=== PATIENT | female | born 1945 | race Caucasian/White ===

== ENCOUNTER 2017-01-05 09:01 | Day surgery (SDC) | payer MEDICARE, OTHER ==
--- NOTE | ~2017-01-05 | EGD ---
EGD REPORT [facility] [address] [place] [id number] NAME: KARY HAYS : [birth year] STATUS : REG [facility]#: [id number] AGE: 71 ADM/REG DATE : 01/05/17 MR#: [id number] REPORT SERV DATE: 01/05/17 DICTATED BY: ARSENIO VIRGEN DATE: 01/05/17 REPORT STATUS : Draft TRANSCRIBED BY: [employer] DATE: 01/05/17 [facility] Center Patient Name: Kary Hays Date of : 1945 Attending MD: ARSENIO VIRGEN MD Procedure Date No Time: 01/05/2017 Procedure: Colonoscopy Indications: High risk colon cancer surveillance: Personal history of colonic polyps, FH of Colon Cancer - 1st degree relative Referring MD: EDWIN WALLACE Medicines: as per anesthesia Complications: No immediate complications. Procedure: Pre-Anesthesia Assessment: - ASA Grade Assessment: III - A patient with severe systemic disease. After I obtained informed consent, the scope was passed under direct vision. Throughout the procedure, the patient's blood pressure, pulse, and oxygen saturations were monitored continuously. The PCF [id number] was introduced through the anus and advanced to the cecum, identified by appendiceal orifice and ileocecal valve. The colonoscopy was performed without difficulty. The patient tolerated the procedure. The quality of the bowel preparation was adequate to identify polyps. Findings: The perianal and digital rectal examinations were normal. A sessile polyp was found in the transverse colon. The polyp was 4 mm in size. The polyp was removed with a jumbo cold forceps. Resection and retrieval were complete. A sessile polyp was found in the sigmoid colon. The polyp was 4 mm in size. The polyp was removed with a jumbo cold forceps. Resection and retrieval were complete. A sessile polyp was found in the rectum. The polyp was 3 mm in size. The polyp was removed with a jumbo cold forceps. Resection and retrieval were complete. Impression: - One 4 mm polyp in the transverse colon. Resected and retrieved. - One 4 mm polyp in the sigmoid colon. Resected and retrieved. - One 3 mm polyp in the rectum. Resected and retrieved. Recommendation: - Await pathology results. - Repeat colonoscopy for surveillance based on pathology EGD REPORT [address] [id number] NAME: KARY HAYS : [birth year] STATUS : REG [facility]#: [id number] AGE: 71 ADM/REG DATE : 01/05/17 MR#: [id number] REPORT SERV DATE: 01/05/17 DICTATED BY: ARSENIO VIRGEN DATE: 01/05/17 REPORT STATUS : Draft TRANSCRIBED BY: [employer] DATE: 01/05/17 results. Procedure Code(s): --- Professional --- 82667, Colonoscopy, flexible, proximal to splenic flexure; with biopsy, single or multiple Diagnosis Code(s): --- Professional --- K62.1, Rectal polyp D12.5, Benign neoplasm of sigmoid colon D12.3, Benign neoplasm of transverse colon Z86.010, Personal history of colonic polyps Z80.0, Family history of malignant neoplasm of digestive organs CPT copyright 2013 [employer]. All rights reserved. The codes documented in this report are preliminary and upon patient service associate review may be revised to meet current compliance requirements. ARSENIO VIRGEN MD 01/05/2017 12:12 PM This report has been signed electronically. Number of Addenda: 0 Note Initiated On: 01/05/2017 11:28 AM Scope Withdrawal Time 0 hours 10 minutes 54 seconds [address] [id number]
[~2017-01-05 09:01] MED LIST: COQ10100 MG OR; CYANO1000T PO; GARLIQUE PO; GLUCOPHAGE1000 MG PO; GLUCPH PO; LEVOTHROID25 MCG PO; LEVOTHYROXIN125 MCG PO; LEVOTHYROXIN25 MCG PO; LIPOFEN150 MG PO; MAGOX4 PO; RED YEAS1 OR; TAMOXIFEN20 M1 PO; VITD PO; VITE PO; XARELTO15 MG PO; XARELTO20 MG PO; ZYRTEC ALLGY10 MG PO; [UNRECOGNIZED DRUG - OTHER] PO
== END 2017-01-05 23:59 | disposition home health service (06) ==
LOC: DMU 09:01
PROVIDERS: Internal Medicine Gastroenterology
PROC: 0DBP8ZX Excision of Rectum, Via Natural or Artificial Opening Endoscopic, Diagnostic (ICD-10-PCS; 2017-01-05)
PROC: 0DBN8ZX Excision of Sigmoid Colon, Via Natural or Artificial Opening Endoscopic, Diagnostic (ICD-10-PCS; 2017-01-05)
PROC: 0DBL8ZX Excision of Transverse Colon, Via Natural or Artificial Opening Endoscopic, Diagnostic (ICD-10-PCS; principal; 2017-01-05 10:30)
DX: Z12.11 Encounter for screening for malignant neoplasm of colon (principal); D12.3 Benign neoplasm of transverse colon; D12.8 Benign neoplasm of rectum; K63.5 Polyp of colon; E11.9 Type 2 diabetes mellitus without complications; E03.9 Hypothyroidism, unspecified; F32.9 Major depressive disorder, single episode, unspecified; E66.9 Obesity, unspecified; M19.90 Unspecified osteoarthritis, unspecified site; Z86.010 Personal history of colon polyps; Z80.0 Family history of malignant neoplasm of digestive organs; Z79.899 Other long term (current) drug therapy; Z88.5 Allergy status to narcotic agent; Z88.2 Allergy status to sulfonamides; Z88.8 Allergy status to other drugs, medicaments and biological substances; Z90.49 Acquired absence of other specified parts of digestive tract; Z90.710 Acquired absence of both cervix and uterus; Z98.890 Other specified postprocedural states
CPT/HCPCS: 82962; 88305